=== PATIENT | female | born 1995 | race Caucasian/White ===

== ENCOUNTER → 2016-07-19 | Outpatient (CLI) | payer OTHER ==
[~2016-07-19] MED LIST: ACET-654 PO; ENSKTAB PO
[2016-07-19 11:52] LABS: BASO % 0.2 % (0.0-1.0); EOS # 0.1 K/mm3 (0.0-0.50); LARGE UNSTAINED CELL # 0.1 K/mm3 (0.0-0.4); LYMPH # 1.9 K/mm3 (1.5-6.5); LYMPH % 20.6 % (24.0-44.0); MEAN CORPUSCULAR HEMOGLOBIN 23.4 pg (27.0-33.0); MEAN CORPUSCULAR HGB CONC 30.2 g/dl (32.0-36.5); MEAN CORPUSCULAR VOLUME 77.3 fl (80.0-96.0); MONO # 0.4 K/mm3 (0.0-0.8); MONO % 4.2 % (0.0-5.0); NEUTROPHILS # 6.7 K/mm3 (1.8-7.7); PLATELET COUNT, AUTOMATED 291 k/mm3 (150-450); RED CELL DISTRIBUTION WIDTH 17.7 % (11.5-14.5); WHITE BLOOD COUNT 9.2 K/mm3 (4.0-10.0)
[2016-07-19 12:20] LABS: HBsAg Prenatal NEGATIVE (NEGATIVE)
--- NOTE | 2016-07-19 16:34 | REP ---
OB ULTRASOUND: REASON: anatomy. Multiple ultrasonographic images of the gravid uterus show a single living intrauterine gestation in variable positions. Doppler interrogation of the heart shows a heart rate of 153 beats per minute. The subjective aminotic fluid volume is within normal limits. The placenta is posterior right lateral and not low lying. The cervix measures 4.4 cm in length and it is closed. Evaluation of the maternal adnexal spaces showed no abnormalities. BPD 5.6 cm = 23 weeks 2 days HC 21.7 cm = 23 weeks 5 days AC 19.7 cm = 24 weeks 3 days FL 4.4 cm = 24 weeks 3 days Estimated weight is 676 grams which is at the 63rd percentile for a 23 week 4 day gestational age. Structures visualized as unremarkable are as follows: Thalami, cavum septum pellucidum, cerebellum, cisterna magna, cerebral ventricles, spine, kidneys, urinary bladder, three vessel umbilical cord, cord insertion, stomach, four chamber heart, lower extremities and diaphragm. Structures suboptimally visualized as follows: facial features and ventricular outflow tracts. IMPRESSION: Single living intrauterine gestation as described above with an estimated gestational age of 23 weeks 4 days via composite criteria with an estimated date of delivery of 11/11/2016 today's exam. No anomalies were detected, however, I recommend a followup exam to better visualize those structures not well seen today as described above. Signed by Jose Camacho DO 07/19/2016 04:40 P
== END ==
LOC: M LRY 08:33
PROVIDERS: ATTEND Specialist
DX: Z34.81 Encounter for supervision of other normal pregnancy, first trimester (principal); Z34.82 Encounter for supervision of other normal pregnancy, second trimester

== ENCOUNTER → 2016-09-20 | Outpatient (CLI) | payer OTHER ==
[~2016-09-20] MED LIST changes: -ACET-654 PO; +ACET1TAB17 PO; +COLA100C5 PO; +IBUP-1114 PO; +IRON1TAB PO; +OXYC1TAB23 PO; +PRENTAB52 PO
--- NOTE | 2016-09-20 10:51 | REP ---
Obstetric ultrasound for follow-up of anatomy: The prior study dated 07/19/2016 was unable to optimally demonstrate the facial features or the cardiac right and left ventricular outflow tracts. On the study today there is a single intrauterine gestation in a vertex presentation. There is motion and cardiac activity with the heart rate of 131 beats per minute. The placenta is posterior and fundal with no previa or abruptio and demonstrates grade 2 maturity. The amniotic fluid volume subjectively is normal. The amniotic fluid index is 12.4 (and 24 - 24.4). By the ultrasound today the gestational age is 31 weeks 3 days. By the first ultrasound during this gestation the gestational age is 32 weeks 4 days and by LMP 33 weeks 2 days. The weight is 1700.2 grams (3 pounds, 12 ounces). This is the 17th percentile for 32 weeks 4 days and the 7th percentile for 33 weeks 2 days. The umbilical artery Doppler assessment: SD ratio 3.00. Resistive index of 0.66. Diastolic flow velocity 10.5 cm/sec. These values are normal. The diastolic flow velocity is in the low normal range. The facial features are not demonstrated. The cardiac outflow tracts are not demonstrated. The remainder of the anatomy previously was unremarkable. Signed by Parmjit Matos MD 09/20/2016 10:42 A
[2016-09-20 11:19] LABS: ADD MANUAL DIFFER YES; MEAN CORPUSCULAR HGB CONC 31.6 g/dl (32.0-36.5); MEAN CORPUSCULAR VOLUME 82.4 fl (80.0-96.0); PLATELET COUNT, AUTOMATED 276 k/mm3 (150-450); WHITE BLOOD COUNT 12.1 K/mm3 (4.0-10.0)
[2016-09-20 12:38] LABS: ANISOCYTOSIS 2+; BANDS 1 % (< 11); EOSINOPHILS 1 % (0-5)
== END ==
LOC: M LRY 08:45
PROVIDERS: ATTEND Obstetrics & Gynecology
DX: Z34.82 Encounter for supervision of other normal pregnancy, second trimester (principal)

== ENCOUNTER → 2016-10-16 | Outpatient (REF) | payer OTHER | LOC: M LAB REF 17:11 | PROVIDERS: ATTEND Specialist | DX: Z34.83 Encounter for supervision of other normal pregnancy, third trimester (principal) ==

== ENCOUNTER 2016-11-06 07:49 | Inpatient (IN) | payer OTHER ==
[2016-11-06] VITALS (8 sets, daily range): BP systolic 106–129; BP diastolic 51–78
[~2016-11-06] VITALS: Ht 160 cm; Wt 80.6 kg
[~2016-11-06 07:49] MED LIST changes: -COLA100C5 PO; -IBUP-1114 PO; -OXYC1TAB23 PO
[2016-11-06] MEDS ORDERED: LR 1,000 ML IV SCH ×2 (08:00→12:15)
[2016-11-06] MEDS ORDERED: LACTATED RINGER'S 1000 ML IV STA (08:04)
[2016-11-06] MEDS ORDERED: BICITRA 30ML SOLN UDC PO ONE (08:15)
[2016-11-06 08:41] LABS: MEAN CORPUSCULAR HEMOGLOBIN 26.5 pg (27.0-33.0); MEAN CORPUSCULAR HGB CONC 32.9 g/dl (32.0-36.5); MEAN CORPUSCULAR VOLUME 80.8 fl (80.0-96.0); RED CELL DISTRIBUTION WIDTH 18.9 % (11.5-14.5); WHITE BLOOD COUNT 10.4 K/mm3 (4.0-10.0)
[2016-11-06] MEDS ORDERED: fentaNYL 100 MCG/2 ML INJECTION (J3010) ONE (10:30)
[2016-11-06] MEDS ORDERED: MORPHINE PRES-FREE INJ 10 MG/10 ML VIAL (J2274) ONE (10:30)
[2016-11-06] MEDS ORDERED: ONDANSETRON 4MG/2ML VIAL (J2405) ONE (10:34)
[2016-11-06] MEDS ORDERED: KETOROLAC 60 MG/2 ML VIAL (J1885) ONE (10:34)
[2016-11-06] MEDS ORDERED: OXYTOCIN INJ 10 UNITS/ML VIAL (J2590) ONE (10:34)
[2016-11-06] MEDS ORDERED: ePHEDrine SULFATE 25 MG/5 ML(5MG/ML) SYRINGE ONE (10:34)
[2016-11-06] MEDS ORDERED: PERCOCET 5MG/325MG TAB PO PRN ×2 (11:00→12:15)
[2016-11-06] MEDS ORDERED: KETOROLAC 30 MG/ML VIAL (J1885) IV SCH (11:00)
[2016-11-06] MEDS ORDERED: DOCUSATE SODIUM 100 MG CAP PO PRN (11:00)
[2016-11-06] MEDS ORDERED: MEASLES,MUMPS,RUBELLA VACCINE INJ (MMR-II) (90707) SC SCH (11:00)
[2016-11-06] MEDS ORDERED: RHOGAM 300 MCG (1500 IU) INJ (J2790) IM SCH (11:00)
[2016-11-06] MEDS ORDERED: OXYTOCIN DRIP 30 UNITS in APPROPRIATE DILUENT 1 EA IV ONE (11:00)
--- NOTE | 2016-11-06 11:04 | RO ---
DATE OF PROCEDURE: 11/06/2016 PREPROCEDURE DIAGNOSIS: 39 weeks prior section times one. POSTPROCEDURE DIAGNOSIS: 39 weeks prior section times one. PROCEDURE: Elective repeat low transverse section. SURGEON: Dr. Akash Khalil. TENNIS BALL COVERER HAND: Dr. Cameron Blancas. ANESTHESIA: Spinal. ESTIMATED BLOOD LOSS: 500 mL. FINDINGS: 6 pounds 11 ounce or 3030 grams female , 8 and 9. Normal uterus, fallopian tube and ovaries. OPERATIVE SUMMARY: The patient was taken to the operating room where spinal anesthesia was induced. She was prepped and draped in a sterile fashion in the supine position. Torrez catheter was placed. A Pfannenstiel skin incision was made with a scalpel and carried through to the fascia. The fascia was nicked and extended. The peritoneal cavity was entered. A bladder flap was created. Curvilinear incision was made in the lower uterine segment until the bulging membranes were noted. This was extended manually. Membranes ruptured of clear fluid. was delivered from vertex position without difficulty. The cord was doubly clamped and cut. The infant was handed off to the awaiting nurses. The placenta was expressed. The uterus was exteriorized and cleared of clots and debris. Uterine incision was closed with #0 Vicryl in a running locked fashion. A second imbricating layer of #0 Vicryl was placed. The uterus was placed back in the abdominal cavity, the peritoneum was closed with #2-0 Vicryl in a running fashion. The fascia was closed with #0 Vicryl. The deep layer was irrigated and closed with #3-0 Chromic. The skin was closed with #4-0 Monocryl subcuticular sutures. Sponge, instrument, needle counts were correct.
[2016-11-06] MEDS: PERCOCET 5MG/325MG TAB PO PRN (12:08)
[2016-11-06] MEDS ORDERED: ONDANSETRON 4MG/2ML VIAL (J2405) IV PRN (12:15)
[2016-11-06] MEDS ORDERED: METOCLOPRAMIDE INJ 10MG/2ML VIAL (J2765) IV PRN (12:15)
[2016-11-06] MEDS ORDERED: MEPERIDINE INJ 25 MG/ML VIAL (J2175) IV PRN (12:15)
[2016-11-06] MEDS ORDERED: fentaNYL 100 MCG/2 ML INJECTION (J3010) IV PRN (12:15)
[2016-11-06] MEDS: PRENATAL VITAMINS CHEWABLE TABLET PO SCH (13:00)
[2016-11-06] MEDS ORDERED: LACTATED RINGER'S 1000 ML IV ONE (16:45)
[2016-11-06] MEDS: KETOROLAC 30 MG/ML VIAL (J1885) IV SCH ×2 (18:03→22:29)
[2016-11-06] MEDS ORDERED: IBUPROFEN 800 MG TAB PO SCH (19:00)
[2016-11-07] MEDS ORDERED: OXYC1TAB23 PO (00:11)
[2016-11-07] MEDS: PERCOCET 5MG/325MG TAB PO PRN (01:26)
[2016-11-07 02:11] VITALS: BP 107/53
[2016-11-07] MEDS: KETOROLAC 30 MG/ML VIAL (J1885) IV SCH ×2 (05:51→11:54)
[2016-11-07 06:06] VITALS: BP 109/67
[2016-11-07 07:37] LABS: MEAN CORPUSCULAR HEMOGLOBIN 27.1 pg (27.0-33.0); MEAN CORPUSCULAR HGB CONC 32.8 g/dl (32.0-36.5); MEAN CORPUSCULAR VOLUME 82.7 fl (80.0-96.0); RED CELL DISTRIBUTION WIDTH 18.8 % (11.5-14.5); WHITE BLOOD COUNT 12.6 K/mm3 (4.0-10.0)
[2016-11-07] MEDS: PRENATAL VITAMINS CHEWABLE TABLET PO SCH (09:06)
[2016-11-07 10:00] VITALS: BP 113/60
[2016-11-07] MEDS ORDERED: IBUPROFEN 800 MG TAB PO SCH (13:00)
[2016-11-07 14:00] VITALS: BP 112/57
[2016-11-07 17:56] VITALS: BP 137/70
[2016-11-07] MEDS: IBUPROFEN 800 MG TAB PO SCH (20:29)
[2016-11-07 22:35] VITALS: BP 129/69
[2016-11-07] MEDS: LR 1,000 ML IV SCH (23:11)
[2016-11-08] MEDS: LR 1,000 ML IV SCH (02:52)
[2016-11-08] MEDS: IBUPROFEN 800 MG TAB PO SCH ×2 (03:53→12:14)
[2016-11-08 06:25] VITALS: BP 108/66
[2016-11-08] MEDS: PRENATAL VITAMINS CHEWABLE TABLET PO SCH (08:21)
[2016-11-08] MEDS ORDERED: OXYC1TAB23 PO (08:48)
[2016-11-08] MEDS ORDERED: COLA100C5 PO (08:48)
[2016-11-08] MEDS ORDERED: IBUP-1114 PO (08:48)
[2016-11-08] MEDS ORDERED: ADACEL/BOOSTRIX VACCINE (DIPHTH/PERTUSS/ACELL/TETANUS)0.5ML SYR (90715) IM ONE (09:00)
[2016-11-08] MEDS ORDERED: INFLUENZA QUADRIVALENT PF VACCINE 0.5ML SYRINGE (90686) IM ONE (09:00)
[2016-11-09 14:28] LABS: GC Carboxy THC 156 ng/mL (Cutoff=10)
== END 2016-11-08 14:42 | disposition home or self-care (01) | DRG 540 ==
LOC: M LDI 07:49 → M OBS 12:50
PROVIDERS: ADMIT Specialist; ATTEND Specialist
PROC: 10D00Z1 Extraction of Products of Conception, Low, Open Approach (ICD-10-PCS; principal; 2016-11-06)
DX: O34.211 Maternal care for low transverse scar from previous cesarean delivery (principal); Z37.0 Single live birth; Z3A.39 39 weeks gestation of pregnancy

== ENCOUNTER 2016-12-03 10:11 | Emergency (ER) | payer OTHER ==
[~2016-12-03] VITALS: Ht 160 cm; Wt 74.5 kg
[~2016-12-03 10:11] MED LIST changes: +COLA100C5 PO; +IBUP-1114 PO; +OXYC1TAB23 PO
[2016-12-03 11:09] LABS: BASO % 0.4 % (0.0-1.0); EOS # 0.1 10^3/uL (0.0-0.50); EOS % 1.1 % (0.0-3.0); IMMATURE GRANULOCYTE % 0.5 % (0-0); LYMPH # 2.6 10^3/uL (1.5-6.5); LYMPH % 26.3 % (24.0-44.0); MEAN CORPUSCULAR HEMOGLOBIN 26.1 pg (27.0-33.0); MEAN CORPUSCULAR HGB CONC 30.3 g/dl (32.0-36.5); MONO # 0.5 10^3/uL (0.0-0.8); MONO % 5.6 % (0.0-5.0); NEUTROPHILS # 6.4 10^3/uL (1.8-7.7); NEUTROPHILS % 66.1 % (36.0-66.0); PLATELET COUNT, AUTOMATED 297 10^3/uL (150-450); RED CELL DISTRIBUTION WIDTH 18.7 % (11.5-14.5); WHITE BLOOD COUNT 9.7 10^3/uL (4.0-10.0)
--- NOTE | 2016-12-03 11:39 | REP ---
ABDOMINAL SERIES: Supine and erect views of the abdomen demonstrate no free air and no evidence for bowel obstruction. No dilated small bowel loops are seen. There is mild fecal material scattered throughout the colon. There appears to be a phlebolith in the left pelvis. An accompanying view of the chest demonstrates no acute infiltrate. The heart is normal in size and the mediastinal silhouette is unremarkable. IMPRESSION: Unremarkable abdominal series. Signed by Parmjit Pastor MD 12/03/2016 07:58 P
[2016-12-03 11:46] LABS: ALBUMIN 3.3 GM/DL (3.2-5.2); ALBUMIN/GLOBULIN RATIO 0.92 (1.00-1.93); ALKALINE PHOSPHATASE 83 U/L (45-117); ALT/SGPT 22 U/L (12-78); ANION GAP 6 MEQ/L (8-16); AST/SGOT 22 U/L (15-37); BILIRUBIN,TOTAL 0.2 MG/DL (0.2-1.0); BLOOD UREA NITROGEN 14 MG/DL (7-18); CARBON DIOXIDE LEVEL 27 MEQ/L (21-32); CHLORIDE LEVEL 106 MEQ/L (98-107); CREATININE FOR GFR 0.73 MG/DL (0.55-1.02); GLOMERULAR FILTRATION RATE > 60.0 (>60); GLUCOSE, FASTING 84 MG/DL (70-105); POTASSIUM SERUM 4.1 MEQ/L (3.5-5.1); SODIUM LEVEL 139 MEQ/L (136-145); TOTAL PROTEIN 6.9 GM/DL (6.4-8.2)
[2016-12-03] MEDS ORDERED: ISOVUE-370 76% 100ML VIAL (Q9967) As Ordered ONE (12:15)
--- NOTE | 2016-12-03 13:44 | REP ---
CT ABDOMEN AND PELVIS WITH IV CONTRAST: TECHNIQUE: Axial contrast enhanced images from the lung bases to the pubic symphysis using 100 mL Isovue 370 intravenous contrast material with multiplanar reformations. The visualized lung bases are clear. The liver, spleen, adrenals, pancreas and kidneys appear unremarkable. There is no abdominal aortic aneurysm. There is no adenopathy. There is no free air or free fluid. There is no evidence of bowel wall thickening. There is no evidence of appendicitis. There is prominence of the endometrium on reconstruction images with an AP dimension of the endometrium approximately 2.2 cm. No other definite pelvic abnormality is seen. Note is made of a spondylolysis of L5 with mild anterior grade 1 spondylolisthesis of L5 on S1. IMPRESSION: No free air or free fluid. No evidence of appendicitis. No fluid collection. Endometrium appears prominent with a thickness of approximately 2.2 cm. There is spondylolysis of L5 with mild anterior and grade I spondylolisthesis of L5 on S1. Signed by Parmjit Pastor MD 12/03/2016 08:00 P
[2016-12-03 14:21] VITALS: BP 119/69
== END 2016-12-03 14:12 | disposition home or self-care (01) ==
LOC: M ED 10:11
DX: K59.00 Constipation, unspecified (principal); J45.909 Unspecified asthma, uncomplicated; F41.9 Anxiety disorder, unspecified; F17.210 Nicotine dependence, cigarettes, uncomplicated; Z79.899 Other long term (current) drug therapy
CPT/HCPCS: 36415; 74022; 74177; 80053; 83690; 85025; 99283; Q9967

== ENCOUNTER 2017-11-18 18:03 | Emergency (ER) | payer OTHER ==
[2017-11-18] MEDS: GI COCKTAIL 50ML BTL(HYOSCYAMINE/MAALOX/LIDOCAINE VISCOUS)(1:3:1) PO (19:37)
[2017-11-18] MEDS: ALBUTEROL SULFATE 2.5 MG/0.5 ML INH NEB SOLN NEB (19:44)
[2017-11-18] MEDS: ACETAMINOPHEN TAB 650MG DOSE (2X325MG) PO (20:03)
[2017-11-18 20:12] LABS: BASO % 0.3 % (0.0-1.0); EOS # 0.1 10^3/uL (0.0-0.50); EOS % 0.8 % (0.0-3.0); HEMATOCRIT 38.6 % (36.0-47.0); HEMOGLOBIN 12.4 g/dl (12.0-15.5); IMMATURE GRANULOCYTE % 0.5 % (0-3.0); LYMPH # 2.9 10^3/uL (1.5-6.5); LYMPH % 32.3 % (24.0-44.0); MEAN CORPUSCULAR HGB CONC 32.1 g/dl (32.0-36.5); MEAN CORPUSCULAR VOLUME 87.1 fl (80.0-96.0); MONO # 0.6 10^3/uL (0.0-0.8); MONO % 6.6 % (0.0-5.0); NEUTROPHILS # 5.3 10^3/uL (1.8-7.7); NEUTROPHILS % 59.5 % (36.0-66.0); PLATELET COUNT, AUTOMATED 271 10^3/uL (150-450); RED BLOOD COUNT 4.43 10^6/uL (4.00-5.40); WHITE BLOOD COUNT 8.9 10^3/uL (4.0-10.0)
[2017-11-18 21:33] LABS: ANION GAP 8 MEQ/L (8-16); BLOOD UREA NITROGEN 6 MG/DL (7-18); CARBON DIOXIDE LEVEL 25 MEQ/L (21-32); CHLORIDE LEVEL 107 MEQ/L (98-107); CREATININE FOR GFR 0.67 MG/DL (0.55-1.30); GLOMERULAR FILTRATION RATE > 60.0 (>60); GLUCOSE, FASTING 86 MG/DL (70-100); HCG, SERUM QUANTITATIVE 72456 MIU/ML; POTASSIUM SERUM 3.9 MEQ/L (3.5-5.1); SODIUM LEVEL 140 MEQ/L (136-145)
[2017-11-18] MEDS ORDERED: ONDANSETRON 4 MG ORAL DISINTEGRATING TAB (Q0162 PER 1MG) PO (21:45)
== END 2017-11-18 21:59 | disposition home or self-care (01) ==
LOC: M ED 18:03
DX: O98.519 Other viral diseases complicating pregnancy, unspecified trimester (principal); B34.9 Viral infection, unspecified; O99.89 Other specified diseases and conditions complicating pregnancy, childbirth and the puerperium; R05 Cough; O99.519 Diseases of the respiratory system complicating pregnancy, unspecified trimester; J06.9 Acute upper respiratory infection, unspecified; O99.330 Smoking (tobacco) complicating pregnancy, unspecified trimester; F17.200 Nicotine dependence, unspecified, uncomplicated; Z3A.00 Weeks of gestation of pregnancy not specified; Z98.890 Other specified postprocedural states; Z86.2 Personal history of diseases of the blood and blood-forming organs and certain disorders involving the immune mechanism
CPT/HCPCS: 94640

== ENCOUNTER → 2018-04-09 | Outpatient (REF) | payer OTHER ==
[~2018-04-09] MED LIST changes: -ACET1TAB17 PO; +ACET1TAB55 PO; +GUAI100S27 PO; +PROAAER10 INH; +ZOFR4TAB14 PO
== END ==
LOC: M LAB REF 17:23
PROVIDERS: ATTEND Advanced Practice Midwife
DX: Z12.4 Encounter for screening for malignant neoplasm of cervix (principal)

== ENCOUNTER → 2018-05-26 | Outpatient (CLI) | payer OTHER ==
[~2018-05-26] MED LIST changes: +ENSK1TAB3 PO; -ENSKTAB PO; +GUAI100L6 PO; -GUAI100S27 PO
[2018-05-26 18:28] LABS: GLUCOSE CHALLENGE TEST 1 HOUR 145 MG/DL (LESS THAN 140)
[2018-05-26 18:31] LABS: BASO % 0.2 % (0.0-1.0); EOS # 0.1 10^3/uL (0.0-0.50); EOS % 0.8 % (0.0-3.0); HEMATOCRIT 38.2 % (36.0-47.0); HEMOGLOBIN 11.7 g/dl (12.0-15.5); LYMPH # 2.6 10^3/uL (1.5-6.5); LYMPH % 20.9 % (24.0-44.0); MEAN CORPUSCULAR HEMOGLOBIN 26.2 pg (27.0-33.0); MEAN CORPUSCULAR HGB CONC 30.6 g/dl (32.0-36.5); MEAN CORPUSCULAR VOLUME 85.7 fl (80.0-96.0); MONO # 0.6 10^3/uL (0.0-0.8); NEUTROPHILS # 8.9 10^3/uL (1.8-7.7); NEUTROPHILS % 72.6 % (36.0-66.0); PLATELET COUNT, AUTOMATED 247 10^3/uL (150-450); RED BLOOD COUNT 4.46 10^6/uL (4.00-5.40); WHITE BLOOD COUNT 12.2 10^3/uL (4.0-10.0)
[2018-05-26 18:55] LABS: HEMOGLOBIN A1c 5.2 %
[2018-05-26 23:54] LABS: CHLAMYDIA DNA AMPLIFICATION NEGATIVE (NEGATIVE); GC DNA AMPLIFICATION NEGATIVE (NEGATIVE)
[2018-05-27 09:38] LABS: RUBELLA IgG QUALITATIVE IMMUNE (IMMUNE)
[2018-05-27 10:08] LABS: HEPATITIS C VIRUS ABY INDEX 0.1 INDEX (<0.8); HIV 1&2 SCREEN CENTAUR NEGATIVE (NEGATIVE)
== END ==
LOC: M SMT 13:09
PROVIDERS: ATTEND Advanced Practice Midwife
DX: Z34.80 Encounter for supervision of other normal pregnancy, unspecified trimester (principal); Z3A.30 30 weeks gestation of pregnancy

== ENCOUNTER 2018-06-23 05:52 | Inpatient (IN) | payer MEDICAID ==
[~2018-06-23] VITALS: Ht 160 cm; Wt 97.7 kg
[2018-06-23] VITALS (9 sets, daily range): BP systolic 102–138; BP diastolic 58–74
[~2018-06-23 05:52] MED LIST changes: +NITR-67 PO; +PRENTAB53 PO
[2018-06-23] MEDS ORDERED: LR 800 ML IV ONE (06:15)
[2018-06-23] MEDS ORDERED: BICITRA 30ML SOLN UDC PO ONE (06:15)
[2018-06-23] MEDS ORDERED: LR 1,000 ML IV SCH ×2 (06:15→08:41)
[2018-06-23 06:35] LABS: HEMATOCRIT 33.7 % (36.0-47.0); HEMOGLOBIN 10.7 g/dl (12.0-15.5); MEAN CORPUSCULAR HEMOGLOBIN 26.4 pg (27.0-33.0); MEAN CORPUSCULAR HGB CONC 31.8 g/dl (32.0-36.5); MEAN CORPUSCULAR VOLUME 83.2 fl (80.0-96.0); PLATELET COUNT, AUTOMATED 257 10^3/uL (150-450); RED BLOOD COUNT 4.05 10^6/uL (4.00-5.40); WHITE BLOOD COUNT 11.3 10^3/uL (4.0-10.0)
[2018-06-23] MEDS ORDERED: MORPHINE PRES-FREE INJ 10 MG/10 ML VIAL (J2274) As Ordered ONE (07:13)
[2018-06-23] MEDS ORDERED: OXYTOCIN INJ 10 UNITS/ML VIAL (J2590) As Ordered ONE (07:14)
[2018-06-23] MEDS ORDERED: dexameTHASONE 4 MG/ML 1ML VIAL (J1100) As Ordered ONE (07:15)
[2018-06-23] MEDS ORDERED: ONDANSETRON 4MG/2ML VIAL (J2405) As Ordered ONE (07:15)
[2018-06-23] MEDS ORDERED: OXYC1TAB23 PO (07:36)
[2018-06-23] MEDS ORDERED: IBUP-1022 PO (07:39)
[2018-06-23] MEDS ORDERED: ONDANSETRON 4MG/2ML VIAL (J2405) IV PRN ×3 (07:48→09:15)
[2018-06-23] MEDS ORDERED: NALOXONE INJ 0.4 MG/1 ML VIAL (J2310) IV PRN ×2 (07:48)
[2018-06-23] MEDS ORDERED: diphenhydrAMINE INJ 50MG/ML VIAL (J1200) IV PRN (07:48)
[2018-06-23] MEDS ORDERED: NALBUPHINE HCL 10 MG/ML AMP (J2300) IV PRN (07:48)
[2018-06-23] MEDS ORDERED: METOCLOPRAMIDE INJ 10MG/2ML VIAL (J2765) IV PRN (07:48)
[2018-06-23] MEDS ORDERED: PHENYLephrine HCL 500 MCG/5 ML (100MCG/ML) SYRINGE (J2370) As Ordered ONE (08:05)
[2018-06-23] MEDS ORDERED: KETOROLAC 60 MG/2 ML VIAL (J1885) As Ordered ONE (08:19)
[2018-06-23] MEDS ORDERED: OXYTOCIN DRIP 30 UNITS in APPROPRIATE DILUENT 1 EA IV SCH (08:41)
[2018-06-23] MEDS ORDERED: DOCUSATE SODIUM 100 MG CAP PO PRN (08:45)
[2018-06-23] MEDS ORDERED: MEASLES,MUMPS,RUBELLA VACCINE INJ (MMR-II) (90707) SC SCH (08:45)
[2018-06-23] MEDS ORDERED: RHOGAM 300 MCG (1500 IU) INJ (J2790) IM SCH (08:45)
--- NOTE | 2018-06-23 09:05 | RO ---
DATE OF PROCEDURE: 06/23/2018 PREPROCEDURE DIAGNOSIS: 39 weeks, prior section times two. POSTPROCEDURE DIAGNOSIS: 39 weeks, prior section times two. PROCEDURE: Repeat low transverse section. Bilateral tubal ligation. SURGEON: Dr. Akash Khalil FENCE SUPERVISOR: Prudence Thorne CNM ANESTHESIA: Spinal. ESTIMATED BLOOD LOSS: 500 mL. URINE OUTPUT: 100 mL. FINDINGS: 7 pound 5 ounce, 3320 gram female infant, Apgars 9 and 10. Normal uterus, fallopian tubes and ovaries. DESCRIPTION OF PROCEDURE: The patient was taken to the operating room where spinal anesthesia was induced. She was prepped and draped in sterile fashion in the supine position. A Torrez catheter was placed. Pfannenstiel skin incision was made with the scalpel and carried through to the fascia. The fascia was nicked and extended. The fascia was dissected off the rectus muscles. The peritoneal cavity was entered. A bladder flap was created. A curvilinear incision was made in the lower uterine segment until clear fluid was noted. This was extended manually. The infant was delivered from the vertex position without difficulty. The cord was doubly clamped and cut. The was handed off to the awaiting nurses. The placenta was expressed. The uterus was exteriorized and cleared of clots and debris. The uterine incision was closed with #0 Vicryl in a running locked fashion. A second imbricating layer of #0 Vicryl was placed. Attention was turned to the fallopian tubes. The fallopian tubes were grasped at their mid portions with Willshire clamp. A window was created in the broad ligament. A segment of tube on either side of the Hanh clamp was secured with a free tie of #3-0 chromic. A segment of tube was excised with Metzenbaum scissors and sent to pathology bilaterally. The uterus was placed back in the abdominal cavity. Good hemostasis was noted. The peritoneum was closed with #2-0 Vicryl in a running fashion. The fascia was closed with #0 Vicryl in a running fashion. The deep layer was irrigated and closed with #3-0 chromic. The skin was closed with #4-0 Monocryl subcuticular sutures. Sponge, needle and instrument counts were correct. Prudence Thorne CNM, assisted with all aspects of the procedure from beginning to end. She helped create incision through all layers, including the uterus. She helped with expulsion of the fetus and closure of all subsequent layers.
[2018-06-23] MEDS ORDERED: fentaNYL 100 MCG/2 ML INJECTION (J3010) IV PRN (09:15)
[2018-06-23] MEDS ORDERED: OXYTOCIN 30 UNITS IN 0.9% NaCl 500ML IV BAG (J2590) As Ordered ONE (09:46)
[2018-06-23] MEDS: PERCOCET 5MG/325MG TAB PO PRN ×2 (12:12→20:14)
[2018-06-23] MEDS: PRENATAL VITAMINS CHEWABLE TABLET PO SCH (13:00)
[2018-06-23] MEDS: KETOROLAC 30 MG/ML VIAL (J1885) IV SCH ×2 (14:19→20:14)
[2018-06-23] MEDS ORDERED: LR 500 ML IV ONE (19:00)
[2018-06-24 02:00] VITALS: BP 115/63
[2018-06-24] MEDS: KETOROLAC 30 MG/ML VIAL (J1885) IV SCH ×2 (02:00→02:06)
[2018-06-24] MEDS: PERCOCET 5MG/325MG TAB PO PRN ×2 (02:06→09:43)
[2018-06-24] MEDS ORDERED: CALCIUM CARBONATE 500 MG CHEW U/D PO PRN (03:45)
[2018-06-24] MEDS: SIMETHICONE 80 MG CHEW TAB PO PRN ×2 (03:58→13:03)
[2018-06-24] MEDS: IBUPROFEN 800 MG TAB PO SCH ×2 (04:00→11:53)
[2018-06-24 06:34] VITALS: BP 110/55
[2018-06-24 06:41] LABS: HEMATOCRIT 29.7 % (36.0-47.0); HEMOGLOBIN 9.2 g/dl (12.0-15.5); MEAN CORPUSCULAR HEMOGLOBIN 26.7 pg (27.0-33.0); MEAN CORPUSCULAR VOLUME 86.1 fl (80.0-96.0); PLATELET COUNT, AUTOMATED 208 10^3/uL (150-450); RED BLOOD COUNT 3.45 10^6/uL (4.00-5.40); WHITE BLOOD COUNT 14.5 10^3/uL (4.0-10.0)
--- NOTE | 2018-06-24 07:03 | NUR ---
POD#1 S: Doing well w/o complaints. Pain well controlled. Tolerating reg diet, + ambulation O: vss, AF Gen: well appearing abd: soft, appropriately tender incision: dressed ext: neg calf tenderness A/P: POD # 1 s/p repeat c/s with BTL- recovering in stable condition -cont routine postoperative care -disposition tomorrow, or later today Emelia Hale MD
[2018-06-24] MEDS: PRENATAL VITAMINS CHEWABLE TABLET PO SCH (09:42)
[2018-06-24 10:00] VITALS: BP 130/84
[2018-06-24] MEDS ORDERED: IBUPROFEN 800 MG TAB PO SCH (10:00)
[2018-06-24 14:00] VITALS: BP 134/76
--- NOTE | 2018-06-24 15:37 | DSES ---
DATE OF ADMISSION: 06/23/2018 DATE OF DISCHARGE: 06/24/2018 DISCHARGE DIAGNOSES: Repeat section postoperative day #1. Bilateral tubal ligation, stable condition. SURGEON: Dr. Akash Khalil NET UI DEVELOPER: Yuly Thorne CNM HISTORY: Araceli is a 4, para 3-0-1-3 now, who was admitted on 06/23/2018 for repeat section and bilateral tubal ligation due to prior section times two. Surgery was uncomplicated. She did deliver a 7 pound 5 ounce female, 3320 grams, 9 and 10. Her estimated blood loss (EBL) was 500 mL. Her postoperative course has been uncomplicated. She is requesting discharge home today. She has been out of bed for self care, kaden care, and care. She is tolerating regular diet and oral fluids. Her pain has been well controlled with oral pain medications. OBJECTIVE: Temperature 98.9, pulse 88, respirations 18, blood pressure (BP) is 134/76. Her breasts are soft and nontender. Nipples intact. Her abdomen, fundus firm at umbilicus. Incision with Optifoam dressing applied. There is no drainage noted. Perineum is intact. Lochia rubra scant. Preoperative complete blood count (CBC) with a hemoglobin of 10.7, hematocrit 33.7, platelets 257. Postoperative CBC 06/24/2018, hemoglobin 9.2, hematocrit 29.7 and platelets 208. PLAN: Discharge the patient home today. She is to followup at [facility] for a 2-week incision check and a 6-week appointment. Prescriptions have been E-prescribed by Dr. Akash Khalil. Percocet 5/325 1-2 tablets by mouth every 6 hours as needed for pain and ibuprofen [id number] as needed. I did review discharge instructions with the patient, breast care, incision care, kaden care, pelvic rest, activity and lifting restrictions, access to care and other danger signs she should report her provider. The patient has had all of her questions answered and desires to be discharged.
[2018-06-24] MEDS ORDERED: PRENTAB9 PO (15:54)
[2018-06-25] MEDS ORDERED: NORC1TAB7 PO (21:36)
== END 2018-06-24 18:00 | disposition home or self-care (01) | DRG 540 ==
LOC: M LDI 05:52 → M OBS 12:42
PROVIDERS: ADMIT Specialist; ATTEND Specialist
PROC: 0UB70ZZ Excision of Bilateral Fallopian Tubes, Open Approach (ICD-10-PCS; 2018-06-23)
PROC: 10D00Z1 Extraction of Products of Conception, Low, Open Approach (ICD-10-PCS; principal; 2018-06-23 07:30)
DX: O34.211 Maternal care for low transverse scar from previous cesarean delivery (principal); Z37.0 Single live birth; Z30.2 Encounter for sterilization